=== PATIENT | female | born 1940 | race Caucasian/White ===

== ENCOUNTER → 2023-12-25 12:29 | Outpatient (REF) | payer MEDICARE, OTHER, SELFPAY | LOC: RAD 12:29 | PROVIDERS: ATTENDING PHYSICIAN Nurse Practitioner Acute Care; FAMILY PHYSICIAN Internal Medicine | DX: M81.0 Age-related osteoporosis without current pathological fracture (principal) | CPT/HCPCS: 77080 ==

== ENCOUNTER 2024-02-01 07:03 | Day surgery (SDC) | payer MEDICARE, OTHER, SELFPAY ==
--- NOTE | 2023-12-28 11:18 | CM ---
Patient is scheduled for an elective L TKR on 02/01/24- she is a same day patient. Spoke with patient prior to surgery. Introduced role of Orthopedic Navigator. Patient reports that she lives with her in a one floor apartment at [place]
[facility]. She currently functions independently. She has a rolling walker. She has never had VN services.
Discussed orthopedic program and post surgical plans. Reviewed that she will have VN services initially (medicare.gov website and ratings reviewed) and will then start outpatient PT. Patient selects [facility] (face sheet faxed to [facility]
to facilitate confirmation of benefits) for her home care needs and will get outpatient PT at [facility].
Patient is in agreement with plan and states that her will be home with her.
Patient has completed online education.
Plan: Orthopedic Navigator will remain available to assist with the care of patient and will reassess discharge needs after surgery.
--- NOTE | 2023-12-28 11:26 | CM ---
Patient is scheduled for an elective L TKR on 02/01/24- she is a same day patient. Spoke with patient prior to surgery. Introduced role of Orthopedic Navigator. Patient reports that she lives with her in a one floor home at [facility].
She currently functions independently. She has a rolling walker. She has never had VN services.
Discussed orthopedic program and post surgical plans. Reviewed that she will have VN services initially (medicare.gov website and ratings reviewed) and will then start outpatient PT. Patient selects [facility] (face sheet faxed to VN
to facilitate confirmation of benefits) for her home care needs and will get outpatient PT at [facility].
Patient is in agreement with plan and states that her will be home with her.
Patient has completed online education.
Plan: Orthopedic Navigator will remain available to assist with the care of patient and will reassess discharge needs after surgery.
[2024-01-13 13:27] VITALS: BMI 29.5
[2024-01-13 13:45] LABS: Hematocrit 43.1 % (37.0-47.0); Hemoglobin 14.7 g/dL (12.0-16.0); Mean Corp Hgb Conc. 34.1 g/dL (33.0-37.0); Mean Corpuscular Hgb 31.5 pg (27.0-31.0); Mean Corpuscular Volume 92.3 fL (81.0-99.0); Mean Platelet Volume 9.8 fL (7.4-10.4); Platelet Count 171 10^3/uL (130-400); Red Blood Cell Count 4.67 10^6/uL (4.20-5.40); Red Cell Dist. Width 11.7 % (11.5-14.5); White Blood Cell Count 7.1 10^3/uL (4.8-10.8)
[2024-01-13 14:24] LABS: Glycohemoglobin (HgbA1c) 5.5 % (4.0-5.6)
[2024-01-13 14:27] LABS: ALT (SGPT) 24 U/L (0-35); AST (SGOT) 39 U/L (14-36); Albumin 4.1 g/dl (3.5-5.0); Alkaline Phosphatase 67 U/L (38-126); Blood Urea Nitrogen 20 mg/dl (7-17); Calcium 9.3 mg/dl (8.4-10.2); Carbon Dioxide 31 mmol/L (22-30); Chloride 99 mmol/L (98-107); Estimated Creatinine Clearance 64 ml/min; Glucose 76 mg/dl (70-99); Potassium 4.2 mmol/L (3.5-5.1); Sodium 138 mmol/L (135-145); Total Bilirubin 0.6 mg/dl (0.2-1.3); Total Protein 6.8 g/dl (6.3-8.2); eGFR > 60.00
[2024-01-13 16:23] VITALS: BMI 29.5
[2024-02-01] VITALS (17 sets, daily range): BP systolic 111–159; BP diastolic 70–96; BMI 29.5
[2024-02-01] MEDS: CELEBREX 200 MG PO (08:08)
[2024-02-01] MEDS: TYLENOL 650 MG PO (08:08)
[2024-02-01] MEDS: NORMOSOL-R 1000 IV (08:14)
--- NOTE | 2024-02-01 11:28 | CM ---
Patient had planned L TKR today. Met with patient at bedside to review discharge plans. Patient will be returning home today with services through [facility]. On , 02/03, patient will start outpatient PT at [facility]. Reviewed MD follow
up in two weeks and patient is aware of need to schedule appointment.
Patient has her rolling walker here with her.
PT and [facility] were kept updated as to progress and discharge plans.
[2024-02-01] MEDS: ANCEF 5 IV (13:15)
[2024-02-01] MEDS: ROXICODONE 5 MG PO (14:33)
== END 2024-02-01 15:35 | disposition home health service (06) ==
LOC: SDS 07:03
PROVIDERS: ATTENDING PHYSICIAN Specialist; FAMILY PHYSICIAN Internal Medicine; OTHER PHYSICIAN Physician Assistant
DX: M17.12 Unilateral primary osteoarthritis, left knee (principal); M85.80 Other specified disorders of bone density and structure, unspecified site; R74.01 Elevation of levels of liver transaminase levels
CPT/HCPCS: 27447; 36415; 73560; 80053; 83036; 85027; 87070; 93005; 97163; 97530; C1713; C1776

== ENCOUNTER → 2025-02-27 10:42 | Outpatient (REF) | payer MEDICARE, OTHER, SELFPAY | LOC: WDC 10:42 | PROVIDERS: ATTENDING PHYSICIAN Registered Nurse | DX: Z12.31 Encounter for screening mammogram for malignant neoplasm of breast (principal) | CPT/HCPCS: 77063; 77067 ==